=== PATIENT | female | born 1935 | race Caucasian/White ===

== ENCOUNTER 2017-12-22 18:21 | Inpatient (IN) | payer MEDICARE, MEDICAID ==
[~2017-12-22] VITALS: Ht 160 cm; Wt 45.4 kg
[2017-12-22] MEDS ORDERED: ACET-2154 PO (18:43)
[2017-12-22] MEDS ORDERED: DONE10TA11 PO (18:43)
[2017-12-22] MEDS ORDERED: SENN-167 PO (18:43)
[2017-12-22] MEDS ORDERED: MAGN400O6 PO (18:43)
[2017-12-22] MEDS ORDERED: DIVA250T PO (18:43)
[2017-12-22] MEDS ORDERED: MEMA28CA PO (18:43)
[2017-12-22] MEDS ORDERED: CHOL100045 PO (18:43)
[2017-12-22] MEDS ORDERED: MAG355OR18 PO (18:43)
[2017-12-22] MEDS ORDERED: NA P133E RC (18:43)
[2017-12-22] MEDS ORDERED: DOCU-141 PO (18:43)
[2017-12-22] MEDS ORDERED: QUET25TA PO ×2 (18:43)
[2017-12-22] MEDS ORDERED: BISA10SU12 RC (18:43)
[2017-12-22] MEDS ORDERED: FERR325T28 PO (18:43)
[2017-12-22] MEDS ORDERED: ACET-2605 PO ×2 (18:43)
--- NOTE | 2017-12-22 18:50 | NUR ---
Received GPS intake form from ER admitting at this time which states pt was sent for medical clearance, psych eval and possible admissoin to [facility]. No information or report was received from sending facility or psych intake prior to now.
[2017-12-22 19:05] LABS: *BILIRUBIN,URIN NEGATIVE (NEGATIVE); *BLOOD, URINE Trace-lysed (NEGATIVE); *CLARITY,URINE CLEAR (CLEAR); *COLOR,URINE LIGHT YELLOW (YELLOW); *KETONES,URINE NEGATIVE (NEGATIVE); *PROTEIN,URINE NEGATIVE (NEGATIVE); *UROBILINOGEN,URINE 0.2 E.U./dl (NORMAL); LEUKOCYTE ESTERASE ,URINE TRACE (NEGATIVE); NITRITE, URINE NEGATIVE (NEGATIVE); UGLUCOSE NEGATIVE (NEGATIVE)
[2017-12-22 19:12] LABS: BASOPHILS # (AUTO) 0.1 K/uL (0.0-8.0); EOSINOPHILS # (AUTO) 0.1 K/uL (0.0-0.7); EOSINOPHILS % (AUTO) 1.1 % (0.0-7.0); HEMATOCRIT 31.2 % (31.2-41.9); HEMOGLOBIN 10.3 g/dL (10.9-14.3); LYMPHOCYTES # (AUTO) 1.8 K/uL (20.0-40.0); LYMPHOCYTES % (AUTO) 25.6 % (20.5-51.5); MEAN CORPUSCULAR HEMOGLOBIN 29.1 uug (24.7-32.8); MEAN CORPUSCULAR HGB CONC 33 g/dL (32.3-35.6); MEAN CORPUSCULAR VOLUME 87.9 fL (75.5-95.3); MONOCYTES # (AUTO) 0.6 K/uL (2.0-10.0); MONOCYTES % (AUTO) 8.2 % (0.0-11.0); NEUTROPHILS # (AUTO) 4.5 K/uL (1.8-8.9); NEUTROPHILS % (AUTO) 64.1 % (38.5-71.5); PLATELET COUNT (AUTO) 274 K/uL (179-408); RED BLOOD CELL COUNT(AUTO) 3.55 MIL/uL (3.63-4.92); WHITE BLOOD COUNT (AUTO) 7.1 K/uL (3.8-11.8)
[2017-12-22 19:15] LABS: RBC,URINE 0-3 /HPF (0-3); SQUAMOUS EPITHELIAL CELL,UR FEW /HPF (NONE SEEN)
[2017-12-22 19:18] LABS: *AMPHETAMINE, URINE NEGATIVE (NEGATIVE); *BARBITURATE, URINE NEGATIVE (NEGATIVE); *CANNABINOID, URINE NEGATIVE (NEGATIVE); *COCCAINE, URINE NEGATIVE (NEGATIVE); *OPIATE, URINE NEGATIVE (NEGATIVE); *PHENCYCLIDINE SCREEN,URINE NEGATIVE (NEGATIVE)
[2017-12-22 19:19] LABS: CARBON DIOXIDE 29 mmol/L (21-32); CHLORIDE 105 mmol/L (98-107); CREATININE 0.8 mg/dL (0.6-1.3); GLUCOSE 122 mg/dL (74-106); POTASSIUM 3.4 mmol/L (3.5-5.1); UREA NITROGEN, BLOOD 22 mg/dL (7-18)
[2017-12-22 19:25] LABS: ACETAMINOPHEN < 2.0 ug/mL (10-30); ALANINE AMINOTRANSFERASE 12 U/L (14-59); ALKALINE PHOSPHATASE 87 U/L (50-136); ASPARTATE AMINOTRANSFERASE 9 U/L (15-37); BILIRUBIN,DIRECT 0.1 mg/dL (0.0-0.2); BILIRUBIN,TOTAL 0.1 mg/dL (0.2-1.0); TOTAL PROTEIN, SERUM 7.2 g/dL (6.4-8.2)
[2017-12-22 19:26] LABS: ETHANOL < 3 MG/DL (0-0)
--- NOTE | 2017-12-22 19:27 | NUR ---
assumed care from day shift nurse. pt aaox2. awaiting bed for psych hold. pt in no acute distress, able to speak in clear and complete sentences, no respiratory distress.
--- NOTE | 2017-12-22 20:00 | NUR ---
per ERMD pt medically cleared for GPS. Eryn BRADEN called for psych eval, ETA 1 hr.
--- NOTE | 2017-12-22 21:04 | NUR ---
report called and given to Yenny BRADEN
[2017-12-22 21:30] VITALS: BP 109/34
--- NOTE | 2017-12-22 22:00 | NUR ---
RECEIVED PT FROM ER VIA RHALINA WITH SITTER. PT IS AWAKE, ALERT ND ORIENTEDX1. DX: PSYCHOSIS. BELONGING LIST DONE. ADMISSION PROCESS AND CARE PLAN INITIATED. FPC ASSESSMENT DONE.CALL LIGHT WITHIN REACH. BED ALARM ON AND IN LOWPOSITION. PT SHOWS NO SIGNS OF DISTRESS. SAFETY AND COMFORT PROVIDED. WILL CONTINUE TO MONITOR.
[2017-12-22] MEDS ORDERED: ZOLPIDEM 5 MG TABLET PO PRN (22:15)
[2017-12-22] MEDS ORDERED: ACETAMINOPHEN 325 MG TABLET PO PRN (22:15)
[2017-12-22] MEDS ORDERED: MAGNESIUM HYDROXIDE 30 ML LIQUID UDC PO PRN (22:15)
[2017-12-22] MEDS ORDERED: MAG HYDROX/AL HYDROX/SIMETH 30 ML LIQUID UDC PO PRN (22:15)
--- NOTE | 2017-12-23 01:41 | NUR ---
INPUT WRONG DATE ADMISSION INSTEAD OF 12/22/17, I PUT 12/21/17. Addendum: 12/23/17 at 0142 by KEISHA LAGUERRE RN Amended: Links added.
--- NOTE | 2017-12-23 06:16 | NUR ---
PT SLEPT THROUGHOUT THE SHIFT. PT SHOWS NO SIGNS OF DISTRESS PT STABLE. PT DOESN'T WANT TO CHANGE TO HOSPITAL GOWN. CALL LIGHT WITHIN REACH. BED ALARM ON AND SIDE RAILS UP. SAFETY AND COMFORT PROVIDED.WILL ENDORSE TO DAYSHIFT NURSE.
[2017-12-23 08:06] VITALS: BP 110/46
--- NOTE | 2017-12-23 08:37 | NUR ---
AWAKE ALERT TO SELF WITH CONFUSSION AND DISORIENTATION ASKING TO GO HOME SO MANY TIMES BUT REASSURED THAT SHE WILL BE ABLE TO GO HOME SOON SHE IS CLEARED FOR DISCHARGE.AMBULATORY IN THE HALLWAY WITH STEADY GAIT MADE COMFORTABLE AND WILL CONTINUE TO OBSERVE.
[2017-12-23] MEDS: LORAZEPAM 0.5 MG TABLET PO PRN (09:16)
--- NOTE | 2017-12-23 09:16 | NUR ---
PATIENT IS GETTING VERY ANXIOUS AND RESTLESS IN AND OUT OF THE SO MANY TIMES UNABLE TO REDIRECT MEDICATED WITH KLONOPIN ORDERED AND WILL OBSERVE.
[2017-12-23] MEDS ORDERED: BISACODYL 10 MG SUPP.RECT RC PRN (12:30)
[2017-12-23] MEDS ORDERED: MAGNESIUM HYDROXIDE 30 ML LIQUID UDC PO PRN (12:30)
[2017-12-23] MEDS ORDERED: MAG HYDROX/AL HYDROX/SIMETH 30 ML LIQUID UDC PO PRN (12:30)
[2017-12-23] MEDS ORDERED: FLEET ENEMA 133 ML BOTTLE RC PRN (12:30)
--- NOTE | 2017-12-23 12:35 | NUR ---
PATIENT SEEN AND EXAMINED BY DR SREEDHAR MERCER WITH HOME MEDICATIONS RECONCILED.EATING DINNER AT THIS TIME SEEMS CALMER WHEN EATING.
[2017-12-23 15:24] VITALS: BP 94/40
[2017-12-23] MEDS: FERROUS SULFATE 325 MG TABEC PO SCH (17:41)
[2017-12-23] MEDS: DOCUSATE SODIUM 100 MG CAPSULE PO SCH (17:41)
[2017-12-23] MEDS: ACETAMINOPHEN ES 500 MG TABLET PO SCH (17:41)
[2017-12-23] MEDS: QUETIAPINE FUMARATE 25 MG TABLET PO SCH ×2 (18:28→20:29)
--- NOTE | 2017-12-23 18:37 | NUR ---
DR HALL HERE TO SEE PATIENT WITH NEW ORDERS AND NOTED PATIENT IS RESTING IN HER BED COOPERATIVE BUT STILL CONFUSED AND NOT ANXIOUS.WILL CONTINUE TO OBSERVE
[2017-12-23 20:00] VITALS: BP 96/48
--- NOTE | 2017-12-23 20:00 | NUR ---
PATIENT RESTING IN BED WITH 1:1 SITTER AT BEDSIDE. PATIENT IS ALERT TO SELF, CONFUSED AND DISORIENTED, BUT FOLLOWS DIRECTIONS. DENIES PAIN OR DISCOMFORT. NO RESP. DISTRESS NOTED. BED ALARM ON. CALL LIGHT IN REACH. ALL NEEDS ATTENDED. WILL CONTINUE TO MONITOR.
[2017-12-23] MEDS: DIVALPROEX SPRINKLE 125 MG CAP.SPRINK PO SCH (20:29)
[2017-12-23] MEDS: SENNOSIDES 1 TABLET PO SCH (20:29)
[2017-12-23] MEDS: MEMANTINE HCL 5 MG TABLET PO SCH (20:29)
[2017-12-23] MEDS: DONEPEZIL 10 MG TABLET PO SCH (20:29)
--- NOTE | 2017-12-24 06:45 | NUR ---
PATIENT SLEPT 8 HOURS. SITTER AT BEDSIDE. ALL NEEDS ATTENDED.
--- NOTE | 2017-12-24 07:30 | NUR ---
PATIENT IS AWAKE ALERT CONFUSED AND DISORIENTED COOPERATIVE WILL CONTINUE TO OBSERVE AND PROVIDE SAFE AND THERAPEUTIC ENVIRONMENT AT ALL TIMES.
[2017-12-24 08:00] VITALS: BP 104/32
[2017-12-24] MEDS: FERROUS SULFATE 325 MG TABEC PO SCH ×2 (08:04→16:37)
[2017-12-24] MEDS: ACETAMINOPHEN ES 500 MG TABLET PO SCH ×2 (08:04→16:37)
[2017-12-24] MEDS: DIVALPROEX SPRINKLE 125 MG CAP.SPRINK PO SCH ×2 (08:04→20:47)
[2017-12-24] MEDS: MEMANTINE HCL 5 MG TABLET PO SCH ×2 (08:04→20:47)
[2017-12-24] MEDS: QUETIAPINE FUMARATE 25 MG TABLET PO SCH ×3 (08:04→20:47)
[2017-12-24] MEDS: DOCUSATE SODIUM 100 MG CAPSULE PO SCH ×2 (08:04→16:37)
[2017-12-24] MEDS: LORAZEPAM 0.5 MG TABLET PO PRN ×2 (09:25→15:18)
--- NOTE | 2017-12-24 11:17 | NUR ---
CONTINUE TO BE CONFUSED AND DISORIENTED ALERT TO NAME ONLY REPEATEDLY ASKING SAME QUESTIONS OVER AND OVER AGAIN ASSISTED IN WALKING AROUND THE HALLWAY.COMPLIANT AND COOPERATIVE AT THIS TIME.
[2017-12-24 12:00] VITALS: BP 101/51
--- NOTE | 2017-12-24 15:30 | NUR ---
DR HALL HERE TO SEE PATIENT WITH NEW ORDERS AND NOTED.
[2017-12-24 16:00] VITALS: BP 105/53
--- NOTE | 2017-12-24 17:48 | NUR ---
PATIENT WILL BE MOVED TO ROOM 145 BED C [facility]ED [facility] AND REPORT GIVEN TO KUSH FOR CONTINUING CARE PATIENT WILL BE MOVED BY W/CHAIR WITH ALL HER PERSONAL BELONGINGS PATIENT AWARE BUT UNABLE TO PROCESS WHY SHE HAS TO MOVE.
--- NOTE | 2017-12-24 18:30 | NUR ---
PATIENT TRANSFERED TO ROOM 145 BED C BY W/CHAIR PLACED INTO BED AND MADE COMFORTABLE.
--- NOTE | 2017-12-24 18:57 | NUR ---
REC D PATIENT ALERT AND ORIENTED TIMES 1 A LITTLE ANXIOUS ORIENTED TO UNIT AND ROOM 145 C , PT IN NO ACUTE DISTRESS PATIENT ON 5150 FOR GRAVELY DISABLED .MONITOR FOR SAFETY
[2017-12-24 20:00] VITALS: BP 101/51
[2017-12-24] MEDS: DONEPEZIL 10 MG TABLET PO SCH (20:47)
[2017-12-24] MEDS: SENNOSIDES 1 TABLET PO SCH (20:47)
--- NOTE | 2017-12-24 21:30 | NUR ---
RECEIVED PATIENT IN HER BED. SHE IS NOTED AWAKE A/O X 2, SHE IS ABLE TO AMBULATE WITH STEADY GAIT, AND ABLE TO MAKE HER NEEDS KNOWN. SHE IS NOTED PLEASANT AND COOPERATIVE. FORGETFUL, CONFUSED. POOR INSIGHT AND JUDGMENT TO THE REASON FOR HER HOSPITALIZATION TO [facility]. PT IS COMPLIANT WITH MEDICATION REGIMENT AT THIS TIME. SAFETY EMPHASIS. WILL CONTINUE TO MONITOR CLOSELY.
[2017-12-25 07:30] VITALS: BP 139/62
[2017-12-25] MEDS: ACETAMINOPHEN ES 500 MG TABLET PO SCH ×2 (08:20→16:31)
[2017-12-25] MEDS: DIVALPROEX SPRINKLE 125 MG CAP.SPRINK PO SCH ×2 (08:20→20:31)
[2017-12-25] MEDS: QUETIAPINE FUMARATE 25 MG TABLET PO SCH ×3 (08:20→20:31)
[2017-12-25] MEDS: FERROUS SULFATE 325 MG TABEC PO SCH ×2 (08:21→16:31)
[2017-12-25] MEDS: MEMANTINE HCL 5 MG TABLET PO SCH ×2 (08:21→20:31)
[2017-12-25] MEDS: DOCUSATE SODIUM 100 MG CAPSULE PO SCH ×2 (08:21→16:31)
--- NOTE | 2017-12-25 10:18 | NUR ---
Firearms Report: Physician Executive completed and submitted [employer] Firearms Report on 12/25/17.
--- NOTE | 2017-12-25 12:09 | NUR ---
Discharge Note: Pt is currently residing at [facility] [[address] [place] [address]; ]. Patient believes she is living at home alone and would like to live there upon discharge. Per Public Guardian, Lupillo Brooks ([phone]), he would like the patient to return to [facility] upon discharge. Spoke with CJ at the facility who states that the patient is on a 7 day bed hold. RADHA will continue to collaborate with pt, Public Guardian, and MD regarding appropriate discharge plans for the patient. SW will form a safe and proper discharge plan. Addendum: 12/25/17 at 1447 by SELINA GARCIA Note above is Initial Discharge Instructions.
[2017-12-25] MEDS: LORAZEPAM 0.5 MG TABLET PO PRN (13:24)
[2017-12-25] MEDS ORDERED: LORAZEPAM 2 MG/1 ML VIAL IM ONE (14:00)
[2017-12-25] MEDS ORDERED: OLANZAPINE 10 MG VIAL IM ONE (14:00)
[2017-12-25 15:46] VITALS: BP 105/53
[2017-12-25] MEDS: SENNOSIDES 1 TABLET PO SCH (20:31)
[2017-12-25] MEDS: DONEPEZIL 10 MG TABLET PO SCH (20:31)
--- NOTE | 2017-12-25 21:30 | NUR ---
Alert to self reorientated to place,date and situation. Lying in bed Denies of any distress, medication compliant. Denies SI,HI, A/h or V/h Mood Anxious affect flat Cooperative with staff. Observe Q 30 min checks for safety. Encouraged to verbalize feelings.
[2017-12-25 23:02] VITALS: BP 101/50
--- NOTE | 2017-12-26 06:45 | NUR ---
End of Shift: PT SLEPT FOR 9.3 HOURS IN THE SHIFT.MOSTLY PT lying in bed resting comfortably .NO DISTRESS NOTED IN THE SHIFT. Cont to observe q 30 min checks for safety.
[2017-12-26 07:30] VITALS: BP 120/49
[2017-12-26] MEDS: LORAZEPAM 0.5 MG TABLET PO PRN (08:04)
[2017-12-26] MEDS: DOCUSATE SODIUM 100 MG CAPSULE PO SCH ×2 (09:26→16:35)
[2017-12-26] MEDS: DIVALPROEX SPRINKLE 125 MG CAP.SPRINK PO SCH ×2 (09:27→20:29)
[2017-12-26] MEDS: FERROUS SULFATE 325 MG TABEC PO SCH ×2 (09:27→16:35)
[2017-12-26] MEDS: ACETAMINOPHEN ES 500 MG TABLET PO SCH ×2 (09:28→16:35)
[2017-12-26] MEDS: QUETIAPINE FUMARATE 25 MG TABLET PO SCH ×4 (09:28→20:29)
[2017-12-26] MEDS: MEMANTINE HCL 5 MG TABLET PO SCH ×2 (09:28→20:29)
[2017-12-26 16:17] VITALS: BP 112/67
[2017-12-26] MEDS: SENNOSIDES 1 TABLET PO SCH (20:29)
[2017-12-26] MEDS: DONEPEZIL 10 MG TABLET PO SCH (20:30)
[2017-12-26 20:31] VITALS: BP 98/67
--- NOTE | 2017-12-27 06:48 | NUR ---
RECEIVED Pt SLEEPING IN BED, AROUSES EASILY. A+Ox2 TO SELF AND PLACE. Pt STATED SHE IS HERE, "BECAUSE IM FORGETTING EVERYTHING." Pt IS FORGETFUL, CONFUSED, AND DISORIENTED, REQUIRES FREQUENT REMINDERS, EXHIBITS IMPAIRED SHORT AND RETIREMENT MEMORY. PRESENTS WITH BRIGHT AFFECT AND AND FAIR EYE CONTACT. COMPLIANT WITH MEDICATIONS, COOPERATIVE WITH STAFF DIRECTION. SLEPT 7 HOURS.
[2017-12-27 07:30] VITALS: BP 124/52
[2017-12-27] MEDS: LORAZEPAM 0.5 MG TABLET PO PRN (08:22)
[2017-12-27] MEDS: FERROUS SULFATE 325 MG TABEC PO SCH ×2 (08:22→16:11)
[2017-12-27] MEDS: ACETAMINOPHEN ES 500 MG TABLET PO SCH ×2 (08:22→16:11)
[2017-12-27] MEDS: DIVALPROEX SPRINKLE 125 MG CAP.SPRINK PO SCH ×2 (08:22→21:05)
[2017-12-27] MEDS: MEMANTINE HCL 5 MG TABLET PO SCH ×2 (08:22→21:05)
[2017-12-27] MEDS: DOCUSATE SODIUM 100 MG CAPSULE PO SCH ×2 (08:22→16:11)
[2017-12-27] MEDS: QUETIAPINE FUMARATE 25 MG TABLET PO SCH ×4 (08:22→21:00)
[2017-12-27] MEDS ORDERED: DIVALPROEX SPRINKLE 125 MG CAP.SPRINK PO SCH (09:00)
[2017-12-27 15:23] VITALS: BP 112/52
[2017-12-27 20:23] VITALS: BP 92/55
[2017-12-27] MEDS: DONEPEZIL 10 MG TABLET PO SCH (21:05)
--- NOTE | 2017-12-27 21:05 | NUR ---
Received patient sleeping, easily arouses to name. Affect bright, cooperative. Denies S/I. Compliant with medications; states, "whatever" as RN was explaining medication effects. Patient just wants to sleep. C/o being cold; extra blankets provided. Safety measures discussed with patient. Will continue to monitor. Addendum: 12/27/17 at 2342 by RAND BOCANEGRA RN Amended: Links added.
[2017-12-27] MEDS: SENNOSIDES 1 TABLET PO SCH (21:06)
--- NOTE | 2017-12-28 06:48 | NUR ---
Slept most of the night= 9 hours. Still sleeping in bed but arouses easily to name. Cooperative and pleasant with RN. [place] noted.
[2017-12-28 08:00] VITALS: BP 121/64
[2017-12-28] MEDS: DOCUSATE SODIUM 100 MG CAPSULE PO SCH ×3 (09:00→17:05)
[2017-12-28] MEDS: MEMANTINE HCL 5 MG TABLET PO SCH ×2 (09:58→21:00)
[2017-12-28] MEDS: FERROUS SULFATE 325 MG TABEC PO SCH ×2 (09:58→17:03)
[2017-12-28] MEDS: QUETIAPINE FUMARATE 25 MG TABLET PO SCH ×4 (09:58→21:00)
[2017-12-28] MEDS: DIVALPROEX SPRINKLE 125 MG CAP.SPRINK PO SCH ×2 (09:58→21:00)
[2017-12-28] MEDS: ACETAMINOPHEN ES 500 MG TABLET PO SCH ×2 (09:58→17:03)
[2017-12-28] MEDS: LORAZEPAM 0.5 MG TABLET PO PRN ×2 (09:58→17:10)
[2017-12-28 16:00] VITALS: BP 115/50
[2017-12-28 20:00] VITALS: BP 112/43
--- NOTE | 2017-12-28 20:30 | NUR ---
RECEIVED PATIENT IN HER BED ASLEEP, BUT SHE IS EASILY AWAKEN. SHE IS NOTED A/O X 2, CALM AND COOPERATIVE. SHE IS ABLE TO WALK WITH STEADY GAIT AND ABLE TO MAKE HER NEEDS KNOWN, SHE IS NOTED FORGETFUL, BUT EASILY REDIRECTABLE. FAIR INSIGHT AND JUDGMENT, DENIES HEARING VOICES, DENIES SI/VH/AH. SHE IS ABLE TO CFS. SAFETY WAS EMPHASIS. WILL CONTINUE TO MONITOR CLOSELY.
[2017-12-28] MEDS: DONEPEZIL 10 MG TABLET PO SCH (20:57)
[2017-12-28] MEDS: SENNOSIDES 1 TABLET PO SCH (20:57)
--- NOTE | 2017-12-28 22:00 | NUR ---
SEROQUEL 25MG PO QHS WAS HELD DUE TO PATIENT DECREASED B/P OF 112/43MMHG. PULSE 85BPM. PATIENT IN NO DISTRESS, DENIES PAIN OR DISCOMFORT AT THIS TIME. FLUIDS WERE GIVEN. LEGS OF BED ELEVATED. WILL CONTINNUE TO MONITOR CLOSELY.
--- NOTE | 2017-12-28 22:30 | NUR ---
PATIENT NOTED SLEEPING COMFORTABLE IN HER BED. WILL RECHECK B/P IN THE AM. WILL CONTINUE TO MONITOR CLOSELY.
[2017-12-29 00:42] VITALS: BP 95/46
--- NOTE | 2017-12-29 06:24 | NUR ---
PATIENT SLEPT FOR APPROX 6.O HRS THROUGH THE NIGHT. SHE CONTINUE COMPLIANT WITH MEDICATION REGIMENT,
[2017-12-29 07:30] VITALS: BP 118/50
--- NOTE | 2017-12-29 09:20 | NUR ---
RECEIVED Pt IN DAY ROOM, A/O X 1, FORGETFUL AND CONFUSED TO CERTAIN THINGS AND EVENTS, CALM AND COOPERATIVE. SHE IS ABLE TO WALK WITH STEADY GAIT AND ABLE TO MAKE HER NEEDS KNOWN. FORGETFUL BUT EASILY REDIRECTABLE. COMPLIANT TO MEDS AND CARE STAFF. Pt WILL DISCHARGE TO SNF TODAY. WILL F/U WITH PUPPET DEVELOPER REGARDING PLACEMENT AND DISCHARGE PLANNING.
[2017-12-29] MEDS: MEMANTINE HCL 5 MG TABLET PO SCH (09:29)
[2017-12-29] MEDS: DOCUSATE SODIUM 100 MG CAPSULE PO SCH (09:29)
[2017-12-29] MEDS: QUETIAPINE FUMARATE 25 MG TABLET PO SCH ×2 (09:29→13:17)
[2017-12-29] MEDS: DIVALPROEX SPRINKLE 125 MG CAP.SPRINK PO SCH (09:29)
[2017-12-29] MEDS: ACETAMINOPHEN ES 500 MG TABLET PO SCH (09:29)
[2017-12-29] MEDS: FERROUS SULFATE 325 MG TABEC PO SCH (09:30)
--- NOTE | 2017-12-29 10:37 | NUR ---
Discharge Note: Patient will be discharged to [facility] [[address], [place] [address]; [phone]] via ambulance. Spoke with Fidelia at the facility who states they are ready to accept the patient today. Spoke with patient's probate conservator, Lupillo Martínez ([phone]) who is aware and agreeable with discharge plans. Patient is alert and oriented x1, and is pleasant and cooperative with discharge plan. Patient will follow-up at the facility with Dr. Del Real (Talent Acquisition Specialist) and Dr. Stinson (Psychiatrist).
--- NOTE | 2017-12-29 13:45 | NUR ---
Pt DISCHARGED TO [facility] [[address] [place] [address]; [phone]] VIA AMBULANCE. GAVE REPORT TO ESTEFANY NURSE EXPANDED FUNCTION DENTAL ASSISTANT OF SNF. DISCHARGE INFORMATION, PRESCRIPTIONS, AND BELONGINGS WERE GIVEN TO AMBULANCE STAFF UPON DISCHARGE.
== END 2017-12-29 13:45 | DRG 885 ==
LOC: ER 18:21 → GPSOV 21:23 → GPS 12-24 18:30
PROVIDERS: ADMIT Psychiatry & Neurology Psychiatry; ATTEND Nurse Practitioner Acute Care
DX: F23 Brief psychotic disorder (principal); N17.0 Acute kidney failure with tubular necrosis; F02.81 Dementia in other diseases classified elsewhere, unspecified severity, with behavioral disturbance; N39.0 Urinary tract infection, site not specified; G30.9 Alzheimer's disease, unspecified; R26.81 Unsteadiness on feet; Z79.899 Other long term (current) drug therapy; D50.9 Iron deficiency anemia, unspecified; E87.6 Hypokalemia; G62.9 Polyneuropathy, unspecified
CPT/HCPCS: 36415; 71045; 80164; 80307; 85025; 93005; A4663; A9150; G0480; G0480-TC